=== PATIENT | female | born 1950 | race African-American/Black ===

== ENCOUNTER 2018-08-25 22:05 | Inpatient (IN) | payer MEDICARE ==
[~2018-08-25] VITALS: Ht 172.7 cm; Wt 106.1 kg
[2018-08-25] MEDS ORDERED: COREG25 MG PO (23:05)
[2018-08-25] MEDS ORDERED: ULTRAM50 MG PO (23:06)
[2018-08-25] MEDS ORDERED: CATAPRES0.1 MG PO (23:06)
[2018-08-26] VITALS: BP 205/106
[2018-08-26 01:02] VITALS: BMI 35.6
[2018-08-26 03:00] VITALS: BP 166/94
[2018-08-26] MEDS ORDERED: OMEPRAZOLE40 MG PO (06:26)
[2018-08-26] MEDS ORDERED: ZYLOPRIM300 MG PO (06:28)
[2018-08-26] MEDS ORDERED: ZOCOR20 MG PO (06:29)
[2018-08-26] MEDS ORDERED: CALCIUM 600 +1 EAC3 PO (06:30)
[2018-08-26 06:39] LABS: BASOPHILS 0 % (0-2); EOSINOPHILS 0 % (0-7); HEMATOCRIT 34.7 % (36.0-48.0); HEMOGLOBIN 11.2 g/dL (12-16); IMMATURE GRANULOCYTES 0.2 % (0-5); LYMPHOCYTES 5.3 % (15-50); MCH 28.2 pg (26.0-34.0); MCHC 32.3 g/dL (31.0-37.0); MCV 87.4 fL (80.0-100.0); MEAN PLATELET VOLUME 11.4 fL (7.4-10.4); MONOCYTES 5.2 % (2-11); NEUTROPHILS 89.3 % (40-80); PLATELET COUNT 173 10x3/uL (130-400); RBC 3.97 10x6/uL (4.00-5.40); RDW 16.7 % (11.5-14.5); WBC 12.6 10x3/uL (4.8-10.8)
[2018-08-26 06:55] LABS: ALBUMIN 2.1 g/dL (3.4-5.0); ANION GAP 15.3 mmol/L (8-16); BILIRUBIN - TOTAL 0.31 mg/dL (0.2-1.3); CALCIUM 9.5 mg/dL (8.5-10.1); CARBON DIOXIDE 21.1 mmol/L (21.0-32.0); CREATININE - SERUM 1.3 mg/dL (0.6-1.3); MAGNESIUM - SERUM 1.1 mg/dL (1.8-2.4); PHOSPHOROUS 3.2 mg/dL (2.5-4.9); POTASSIUM - SERUM 4.4 mmol/L (3.5-5.1); PROTEIN - SERUM 5.9 g/dL (6.4-8.2)
[2018-08-26] MEDS ORDERED: PRINZIDE 20/12.1 TA1 PO (07:59)
[2018-08-26 08:57] VITALS: BP 191/95
[2018-08-26 11:48] VITALS: Ht 172.7 cm; Wt 106.1 kg
[2018-08-26 12:55] VITALS: BP 183/89
[2018-08-26 18:44] LABS: % SATURATION 7 % (15-55); IRON 15 ug/dl (35-150); TOTAL IRON BIND CAPACITY 195 ug/dl (260-445); UNSAT IRON BIND CAPACITY 180 ug/dl (150-375)
[2018-08-26 20:00] VITALS: BP 203/123
[2018-08-27] VITALS: BP 183/93
[2018-08-27 03:00] VITALS: BP 188/95
[2018-08-27 06:36] LABS: BASOPHILS 0 % (0-2); EOSINOPHILS 0.1 % (0-7); HEMATOCRIT 32.7 % (36.0-48.0); HEMOGLOBIN 10.5 g/dL (12-16); IMMATURE GRANULOCYTES 0.4 % (0-5); LYMPHOCYTES 8.2 % (15-50); MCH 28.2 pg (26.0-34.0); MCHC 32.1 g/dL (31.0-37.0); MCV 87.9 fL (80.0-100.0); MONOCYTES 8.4 % (2-11); NEUTROPHILS 82.9 % (40-80); PLATELET COUNT 190 10x3/uL (130-400); RBC 3.72 10x6/uL (4.00-5.40); WBC 10.2 10x3/uL (4.8-10.8)
[2018-08-27 06:51] LABS: ALBUMIN 1.9 g/dL (3.4-5.0); ANION GAP 12.9 mmol/L (8-16); BILIRUBIN - TOTAL 0.27 mg/dL (0.2-1.3); CALCIUM 9.4 mg/dL (8.5-10.1); CREATININE - SERUM 1.1 mg/dL (0.6-1.3); POTASSIUM - SERUM 3.9 mmol/L (3.5-5.1); PROTEIN - SERUM 5.6 g/dL (6.4-8.2)
[2018-08-27 06:53] LABS: MAGNESIUM - SERUM 1.5 mg/dL (1.8-2.4)
[2018-08-27 07:01] LABS: APTT 22.8 SECONDS (22.8-39.4); INR 1.11 (0.85-1.17); PROTIME 13.8 SECONDS (11.6-15.0)
[2018-08-27 09:21] VITALS: BP 190/101
[2018-08-27 16:56] VITALS: BP 200/101
[2018-08-27 19:00] VITALS: BP 178/102
[2018-08-28] VITALS (9 sets, daily range): BP systolic 110–201; BP diastolic 58–110
[2018-08-28 06:37] LABS: BASOPHILS 0 % (0-2); HEMATOCRIT 38.9 % (36.0-48.0); IMMATURE GRANULOCYTES 0.4 % (0-5); LYMPHOCYTES 13.9 % (15-50); MCHC 33.2 g/dL (31.0-37.0); MCV 87.4 fL (80.0-100.0); MEAN PLATELET VOLUME 10.6 fL (7.4-10.4); NEUTROPHILS 73.7 % (40-80); PLATELET COUNT 184 10x3/uL (130-400); RBC 4.45 10x6/uL (4.00-5.40)
[2018-08-28 06:51] LABS: HEMOGLOBIN 12.9 g/dL (12-16)
[2018-08-28 07:19] LABS: ALBUMIN 2.3 g/dL (3.4-5.0); ANION GAP 16.3 mmol/L (8-16); BILIRUBIN - TOTAL 0.32 mg/dL (0.2-1.3); CARBON DIOXIDE 22.1 mmol/L (21.0-32.0); CREATININE - SERUM 1.1 mg/dL (0.6-1.3); MAGNESIUM - SERUM 1.3 mg/dL (1.8-2.4); POTASSIUM - SERUM 3.4 mmol/L (3.5-5.1); PROTEIN - SERUM 6.5 g/dL (6.4-8.2)
[2018-08-29 01:00] VITALS: BP 159/92
[2018-08-29 04:47] VITALS: BP 150/85
[2018-08-29 06:03] LABS: ALBUMIN 2.2 g/dL (3.4-5.0); BILIRUBIN - TOTAL 0.24 mg/dL (0.2-1.3); CALCIUM 9.6 mg/dL (8.5-10.1); CARBON DIOXIDE 21.7 mmol/L (21.0-32.0); PROTEIN - SERUM 6.1 g/dL (6.4-8.2)
[2018-08-29 06:09] LABS: ANION GAP 15.3 mmol/L (8-16)
[2018-08-29 07:34] LABS: BASOPHILS 0.2 % (0-2); EOSINOPHILS 0 % (0-7); HEMATOCRIT 36.7 % (36.0-48.0); HEMOGLOBIN 12.2 g/dL (12-16); IMMATURE GRANULOCYTES 0.4 % (0-5); LYMPHOCYTES 10.4 % (15-50); MCH 28.1 pg (26.0-34.0); MCHC 33.2 g/dL (31.0-37.0); MCV 84.6 fL (80.0-100.0); MEAN PLATELET VOLUME 10.8 fL (7.4-10.4); PLATELET COUNT 154 10x3/uL (130-400); RBC 4.34 10x6/uL (4.00-5.40); RDW 16.5 % (11.5-14.5); WBC 4.7 10x3/uL (4.8-10.8)
[2018-08-29 08:16] LABS: FOLATE (FOLIC ACID) - SERUM 7.3 ng/mL (>3.0)
[2018-08-29 08:59] VITALS: BP 172/110
[2018-08-29 09:22] LABS: APPEARANCE CLEAR (CLEAR); BILIRUBIN NEGATIVE (NEGATIVE); COLOR YELLOW (YELLOW); GLUCOSE 100 mg/dL (NEGATIVE); KETONE NEGATIVE (NEGATIVE); NITRITE NEGATIVE (NEGATIVE); PROTEIN NEGATIVE (NEGATIVE); UROBILINOGEN NORMAL (NORMAL)
[2018-08-29 12:16] VITALS: BP 142/84
[2018-08-29] MEDS ORDERED: NORVASC10 MG PO (12:56)
--- NOTE | 2018-08-29 15:12 | MORECARE ---
CASE MANAGEMENT DISCHARGE SUMMARY PATIENT: MADYSON DRIVER UNIT: [id number] ADM DATE: 08/25/18 AGE: 68 : 49 SEX: F ROOM/BED: D.2234 AUTHOR: ROSSI SIERRA PHYSICIAN: REFERRING PHYSICIAN: LILIA OROZCO MD DATE OF SERVICE: 08/29/18 Discharge Plan Patient Name: MADYSON DRIVER Facility: [facility]:[place] : 1950 Planned Disposition: Home Anticipated Discharge Date: 08/29/18 Discharge Date: Expected LOS: 4 Initial Reviewer: [email or web address] Initial Review Date: 08/29/2018 Generated: 08/29/18 4:12 pm DCPIA - Discharge Planning Initial Assessment Updated by [email or web address]: Charisse Welch on 08/29/18 3:09 pm * Is the patient Alert and Oriented? Yes * How many steps to enter\exit or inside your home? 4/0 * PCP Brandy [facility]roc[facility] * [facility] [place] * Preadmission Environment Home Alone * ADLs Independent * Equipment None * List name and contact numbers for known caregivers / representatives who currently or will assist patient after discharge: [facility] - [phone] * Verbal permission to speak to the caregivers and representatives has been obtained from the patient. Yes * Community resources currently utilized None * Additional services required to return to the preadmission environment? No * Can the patient safely return to the preadmission environment? Yes * Has this patient been hospitalized within the prior 30 days at any hospital? No Patient Name: MADYSON DRIVER Page [id number] at 1512 All edits/amendments must be made on the electronic document DICTATION DATE: 08/29/181511 PHOTONICS ENGINEERING TECHNOLOGIST: TYREE 08/29/181511 RPT#: [id number] DC DATE: STATUS: ADM IN [facility] [address] [place] [address] END OF REPORT
--- NOTE | 2018-08-29 15:21 | MORECARE ---
CASE MANAGEMENT DISCHARGE SUMMARY PATIENT: MADYSON DRIVER UNIT: [id number] ADM DATE: 08/25/18 AGE: 68 : 49 SEX: F ROOM/BED: D.2234 AUTHOR: ROSSI SIERRA PHYSICIAN: REFERRING PHYSICIAN: LILIA OROZCO MD DATE OF SERVICE: 08/29/18 Discharge Plan Patient Name: MADYSON DRIVER Facility: [facility]:[place] : 1950 Planned Disposition: Home Anticipated Discharge Date: 08/29/18 Discharge Date: Expected LOS: 4 Initial Reviewer: [email or web address] Initial Review Date: 08/29/2018 Generated: 08/29/18 4:21 pm Comments DCP- Discharge Planning Updated by [email or web address]: Charisse Welch on 08/29/18 2:[address] Patient Name: MADYSON DRIVER Admission Status: Elective Accout number: [id number] Admission Date: 08-25-2018 : 1950 Admission Diagnosis:OTHER SPECIFIED DISEASES OF BILIARY TRACT Attending: LILIA OROZCO Current LOS: 4 Anticipated DC Date: 08-29-2018 Planned Disposition: Home Primary Insurance: MEDICARE A & B Discharge Planning Comments: CM met with patient to discuss discharge planning/needs. She lives alone. She is independent with all ADL's and IADL's. Her daughter is here and will take her home on discharge. She denies DME or home health needs. No needs identified. Home today. CM will continue to follow and assist with discharge planning/needs. Family Practice Nurse Practitioner: Charisse Welch DCPIA - Discharge Planning Initial Assessment Updated by [email or web address]: Charisse Welch on 08/29/18 3:09 pm * Is the patient Alert and Oriented? Yes * How many steps to enter\exit or inside your home? 4/0 * [facility] in [place] * Preadmission Environment Home Alone * ADLs Independent * Equipment None * List name and contact numbers for known caregivers / representatives who currently or will assist patient after discharge: Aimee [facility] - [phone] * Verbal permission to speak to the caregivers and representatives has been obtained from the patient. Yes * Community resources currently utilized None * Additional services required to return to the preadmission environment? No * Can the patient safely return to the preadmission environment? Yes * Has this patient been hospitalized within the prior 30 days at any hospital? No Coverage Notice Reviewer: [email or web address] Silvia Welch Notice Issued Date-Time: 08/29/2018 15:15 Notice Type: IM Discharge Notice Notice Delivered To: Patient Relationship to Patient: Self Surgical Lead Name: Delivery Method: HAND - Hand Delivered Monet Days: Prior Verbal Notification: Recipient Understood Notice: Yes Recipient Signature: Yes Med Rec Note Co-signed by Attending: Coverage Notice Comment: IMM explained, signed, copy given, original placed in MR Last DP export: 08/29/18 2:12 p Patient Name: MADYSON DRIVER Page 00180 at 1521 All edits/amendments must be made on the electronic document DICTATION DATE: 08/29/18 152 COMMERCIAL SINGER: TYREE 08/29/18 1520 RPT#: [id number] DC DATE: STATUS: ADM IN [facility] [address] [place] [address] END OF REPORT
--- NOTE | 2018-08-31 11:10 | MORECARE ---
CASE MANAGEMENT DISCHARGE SUMMARY PATIENT: MADYSON DRIVER UNIT: [id number] ADM DATE: 08/25/18 AGE: 68 : 49 SEX: F ROOM/BED: D.2234 AUTHOR: ROSSI SIERRA PHYSICIAN: REFERRING PHYSICIAN: LILIA OROZCO MD DATE OF SERVICE: 08/31/18 Discharge Plan Patient Name: MADYSON DRIVER Facility: [facility]:[place] : 1950 Planned Disposition: Home Anticipated Discharge Date: 08/29/18 Discharge Date: 08/29/2018 Expected LOS: 4 Initial Reviewer: [email or web address] Initial Review Date: 08/29/2018 Generated: 08/31/18 12:09 pm Comments DCP- Discharge Planning Updated by [email or web address]: Charisse Welch on 08/29/18 2:[address] Patient Name: MADYSON DRIVER Admission Status: Elective Accout number: [id number] Admission Date: 08-25-2018 : 1950 Admission Diagnosis:OTHER SPECIFIED DISEASES OF BILIARY TRACT Attending: LILIA OROZCO Current LOS: 4 Anticipated DC Date: 08-29-2018 Planned Disposition: Home Primary Insurance: MEDICARE A & B Discharge Planning Comments: CM met with patient to discuss discharge planning/needs. She lives alone. She is independent with all ADL's and IADL's. Her daughter is here and will take her home on discharge. She denies DME or home health needs. No needs identified. Home today. CM will continue to follow and assist with discharge planning/needs. Booking Clerk: Charisse Welch DCPIA - Discharge Planning Initial Assessment Updated by [email or web address]: Charisse Welch on 08/29/18 3:09 pm * Is the patient Alert and Oriented? Yes * How many steps to enter\exit or inside your home? 4/0 * PCP Brandy [facility] [place] * Pharmacy [facility] in [place] * Preadmission Environment Home Alone * ADLs Independent * Equipment None * List name and contact numbers for known caregivers / representatives who currently or will assist patient after discharge: Aimee [facility] - [phone] * Verbal permission to speak to the caregivers and representatives has been obtained from the patient. Yes * Community resources currently utilized None * Additional services required to return to the preadmission environment? No * Can the patient safely return to the preadmission environment? Yes * Has this patient been hospitalized within the prior 30 days at any hospital? No Coverage Notice Reviewer: [id number] Silvia Welch Notice Issued Date-Time: 08/29/2018 15:15 Notice Type: IM Discharge Notice Notice Delivered To: Patient Relationship to Patient: Self Exchange Clerk Name: Delivery Method: HAND - Hand Delivered Monet Days: Prior Verbal Notification: Recipient Understood Notice: Yes Recipient Signature: Yes Med Rec Note Co-signed by Attending: Coverage Notice Comment: IMM explained, signed, copy given, original placed in MR Last DP export: 08/29/18 2:21 p Patient Name: MADYSON DRIVER Page 02995 at 1110 All edits/amendments must be made on the electronic document DICTATION DATE: 08/31/181108 GREASE PRESS HELPER: TYREE 08/31/181108 RPT#: [id number] DC DATE:08/29/18 STATUS: DIS IN [facility] [address] [place] [address] END OF REPORT
== END 2018-08-29 16:10 | disposition home or self-care (01) | DRG 444 ==
LOC: D.MS 22:05
PROVIDERS: Internal Medicine Gastroenterology; ADMIT Internal Medicine Nephrology
PROC: 0FC98ZZ Extirpation of Matter from Common Bile Duct, Via Natural or Artificial Opening Endoscopic (ICD-10-PCS; principal; 2018-08-28 11:09)
DX: K83.8 Other specified diseases of biliary tract (principal); K85.90 Acute pancreatitis without necrosis or infection, unspecified; N17.9 Acute kidney failure, unspecified; F17.203 Nicotine dependence unspecified, with withdrawal; K82.8 Other specified diseases of gallbladder; I12.9 Hypertensive chronic kidney disease with stage 1 through stage 4 chronic kidney disease, or unspecified chronic kidney disease; N18.9 Chronic kidney disease, unspecified; E66.9 Obesity, unspecified; Z68.35 Body mass index [BMI] 35.0-35.9, adult